=== PATIENT | male | born 1935 | race Caucasian/White ===

== ENCOUNTER → 2016-09-16 | Outpatient (CLI) | payer MEDICARE | LOC: GMAH 11:45 | PROVIDERS: ATTEND Family Medicine | DX: E78.2 Mixed hyperlipidemia (principal); Z12.5 Encounter for screening for malignant neoplasm of prostate | CPT/HCPCS: 84443; 84550; G0103 ==

== ENCOUNTER → 2016-09-19 | Outpatient (CLI) | payer MEDICARE | LOC: LAB.O 09-17 13:33 | PROVIDERS: ATTEND Internal Medicine Rheumatology | DX: M54.5 Low back pain (principal); M34.89 Other systemic sclerosis ==

== ENCOUNTER 2016-10-03 07:13 | Emergency (ER) | payer MEDICARE ==
[2016-10-03 07:33] VITALS: TEMP 96
--- NOTE | 2016-10-03 07:47 | ED.PDOC ---
History of Present Illness - General Chief Complaint: Back Pain or Injury Stated Complaint: back discomfort Time Seen by Provider: 10/03/16 07:41 Source: patient, RN notes reviewed, Vital Signs reviewed Exam Limitations: no limitations - History of Present Illness Initial Comments: Patient stated that his symptoms of soreback started 5-7 days ago with radiation to his right leg aggravated by laying down denies history of falling on his back but according to him he has history of osteoporosis and on long half-way prednisone for his connective tissue disease. Timing/Duration: 1 week, intermittent Quality/Severity: moderate Back Pain Location: lumbar spine Back Pain Radiation: lower legs - right side Method of Injury/Prior Injury: other - no injury reported Improving Factors: other - sitting,walking Associated Symptoms: lower back pain Allergies/Adverse Reactions: Allergies Doxycycline Adverse Reaction (Verified 10/03/16 07:38) Unknown Makes him "feel bad" Home Medications: Ambulatory Orders Aspirin [Aspirin Adult Low Dose] 162 mg PO DAILY 08/05/15 Atenolol [Tenormin] 25 mg PO DAILY 08/05/15 Calcium Citrate-Vitamin D [Citracal + D3 Maximum 315-250 mg-Unit] 1 tab PO BID 08/05/15 Cetirizine HCl [Zyrtec] 10 mg PO BEDTIME 08/05/15 Cholecalciferol [Vitamin D] 2,000 unit PO DAILY 08/05/15 Coenzyme Q10 (Ubidecarenone) [Co Q-10] 100 mg PO DAILY 08/05/15 Elderberry [Little Remedies For Colds] 1 tsp PO DAILY 08/05/15 Estazolam 1 mg PO BEDTIME 08/05/15 Multiple Vitamins W/ Minerals [Centrum Silver] 1 tab PO DAILY 08/05/15 Omeprazole 40 mg PO ACBK 08/05/15 Pravastatin Sodium [Pravachol] 40 mg PO BEDTIME 08/05/15 Pregabalin [Lyrica] 100 mg PO 1700 08/05/15 Pregabalin [Lyrica] 200 mg PO BEDTIME 08/05/15 predniSONE [Prednisone] 10 mg PO DAILY 08/05/15 Acetaminophen W/ Codeine [Tylenol w/Codeine 300-30 mg] 1 tab PO Q4HR PRN #14 tab 10/03/16 Carvedilol [Coreg] 3.125 mg PO DAILY 10/03/16 Ezetimibe [Zetia] 10 mg PO DAILY 10/03/16 Losartan Potassium [Cozaar] 25 mg PO BEDTIME 10/03/16 Magnesium Hydroxide [Milk Of Magnesia] 30 ml PO DAILY 10/03/16 Multiple Vitamins W/ Minerals [Preservision Areds] 1 cap PO BID 10/03/16 Prasugrel [Effient] 10 mg PO BEDTIME 10/03/16 Rosuvastatin Calcium [Crestor] 20 mg PO DAILY 10/03/16 Zoledronic Acid [Reclast] 5 mg IV ONCE 10/03/16 Review of Systems - Review of Systems Constitutional: States: no symptoms reported EENTM: States: blurred vision - history of macular degeneration both eyes Respiratory: States: no symptoms reported Cardiology: States: other - mild exertional dyspnea-hx of chf Gastrointestinal/Abdominal: States: other - gi reflux Genitourinary: States: no symptoms reported Musculoskeletal: States: back pain - chronic hx of osteoporosis Skin: States: no symptoms reported Neurological: States: paresthesia - neuropathy, other - no boel or bladder dysfunction Endocrine: States: no symptoms reported Hematologic/Lymphatic: States: no symptoms reported Past Medical History (General) - Patient Medical History Hx Stroke: No Hx of COPD: Yes Hx Cardiac Disorders: Yes - cardiac stent 09/2015 & 02/2016; [place] 02/2016; high cholesterol Hx Congestive Heart Failure: No Hx Hypertension: Yes Hx Diabetes: No Hx Gastroesophageal Reflux: Yes Hx MRSA: No Hx Other PMH: Yes - macular degeneration Surgical History: other - left eye surgery - Vaccination History Hx Tetanus, Diphtheria Vaccination: No Hx Influenza Vaccination: Yes - 2015 Hx Pneumococcal Vaccination: Yes - Social History Hx Tobacco Use: Yes - Quit 35 years ago Hx Alcohol Use: No Hx Substance Use: No Hx Substance Use Treatment: No Hx Depression: No - Activities of Daily Living Patient Lives Alone: No - lives with Grooming Ability: Independent Eating (Feeding) Ability: Independent Toileting Ability: Independent Family Medical History - Family History Mother Living Status: Age at (years of age): 82 Cause of : shock, cardiovascular Hx Cardiac Disease: Yes - several family members Hx Family;Other: multiple family members with autoimmune disorder Physical Exam - Physical Exam General Appearance: Alert, Comfortable, No apparent distress, Other - ambulatory without assistance Eyes, Ears, Nose, Throat Exam: PERRL/EOMI, normal ENT inspection, pharynx normal Neck Exam: full range of motion, normal alignment, normal inspection Cardiovascular/Respiratory: regular rate, rhythm, no M/R/G, normal peripheral pulses, no JVD, normal breath sounds, no respiratory distress Peripheral Pulses: radial,right: 2+, radial,left: 2+ Gastrointestinal/Abdominal: normal bowel sounds, non tender, soft, no organomegaly, no pulsatile mass Back Exam: normal inspection, no CVA tenderness, no vertebral tenderness, decreased range of motion, muscle spasm - paraspinous lumbar muscle Extremity Exam: no evidence of injury, normal range of motion, non-tender, no pedal edema Neurologic: no motor/sensory deficits, alert, normal mood/affect, oriented x 3, other - DTR 2 + knee jerk bilaterally Skin Exam: normal color, warm/dry Progress - EKG/XRAY/CT XRAY: lumbar spine-degenarative changes no fracture noted Departure - Departure Clinical Impression: Radiculopathy of lumbosacral region Time of Disposition: 09:02 Disposition: Discharge to Home or Self Care Departure Forms: ED Discharge - Pt. Copy, Patient Portal Self Enrollment Instructions: DI for Back Pain With Sciatica Referrals: Stone Ro MD [Primary Care Provider] - 1-2 Weeks Prescriptions: Acetaminophen W/ Codeine [Tylenol w/Codeine 300-30 mg] 1 tab PO Q4HR PRN #14 tab PRN Reason: Pain Home Medications: Ambulatory Orders Aspirin [Aspirin Adult Low Dose] 162 mg PO DAILY 08/05/15 Atenolol [Tenormin] 25 mg PO DAILY 08/05/15 Calcium Citrate-Vitamin D [Citracal + D3 Maximum 315-250 mg-Unit] 1 tab PO BID 08/05/15 Cetirizine HCl [Zyrtec] 10 mg PO BEDTIME 08/05/15 Cholecalciferol [Vitamin D] 2,000 unit PO DAILY 08/05/15 Coenzyme Q10 (Ubidecarenone) [Co Q-10] 100 mg PO DAILY 08/05/15 Elderberry [Little Remedies For Colds] 1 tsp PO DAILY 08/05/15 Estazolam 1 mg PO BEDTIME 08/05/15 Multiple Vitamins W/ Minerals [Centrum Silver] 1 tab PO DAILY 08/05/15 Omeprazole 40 mg PO ACBK 08/05/15 Pravastatin Sodium [Pravachol] 40 mg PO BEDTIME 08/05/15 Pregabalin [Lyrica] 100 mg PO 1700 08/05/15 Pregabalin [Lyrica] 200 mg PO BEDTIME 08/05/15 predniSONE [Prednisone] 10 mg PO DAILY 08/05/15 Acetaminophen W/ Codeine [Tylenol w/Codeine 300-30 mg] 1 tab PO Q4HR PRN #14 tab 10/03/16 Carvedilol [Coreg] 3.125 mg PO DAILY 10/03/16 Ezetimibe [Zetia] 10 mg PO DAILY 10/03/16 Losartan Potassium [Cozaar] 25 mg PO BEDTIME 10/03/16 Magnesium Hydroxide [Milk Of Magnesia] 30 ml PO DAILY 10/03/16 Multiple Vitamins W/ Minerals [Preservision Areds] 1 cap PO BID 10/03/16 Prasugrel [Effient] 10 mg PO BEDTIME 10/03/16 Rosuvastatin Calcium [Crestor] 20 mg PO DAILY 10/03/16 Zoledronic Acid [Reclast] 5 mg IV ONCE 10/03/16 Additional Instructions: ;KEEP APPOINTMENT WITH PRIMARY MD-Wednesday10/05/2016;RETURN TO EMERGENCY ROOM NEEDED
[2016-10-03] MEDS ORDERED: BACLOFEN 10 MG TAB PO ONE (07:48)
--- NOTE | 2016-10-03 08:46 | RAD ---
EXAM DESCRIPTION: XR LUMBAR SPINE 4 OR MORE VIEWS CLINICAL HISTORY: 80 y/o M, back pain COMPARISON: None TECHNIQUE: Five views of the lumbar spine. FINDINGS: There is mild dextroscoliosis of the thoracic spine. There is multilevel spondylosis, worst at L3-L4 with joint space narrowing, subchondral sclerosis and marginal osteophytes. There is multilevel facet arthropathy. There is no acute fracture or subluxation. The vertebral heights are maintained. IMPRESSION: No acute fracture or subluxation. Electronically signed by: Praveen Guido MD 10/03/2016 08:44
[2016-10-03 09:08] VITALS: BP 115/48; O2SAT 97
== END 2016-10-03 09:08 | disposition home or self-care (01) ==
LOC: ER 07:13
DX: M54.17 Radiculopathy, lumbosacral region (principal); M81.0 Age-related osteoporosis without current pathological fracture; M35.9 Systemic involvement of connective tissue, unspecified; J44.9 Chronic obstructive pulmonary disease, unspecified; I25.2 Old myocardial infarction; Z88.3 Allergy status to other anti-infective agents; K21.9 Gastro-esophageal reflux disease without esophagitis; Z87.891 Personal history of nicotine dependence; Z79.82 Long term (current) use of aspirin; Z79.899 Other long term (current) drug therapy; Z98.61 Coronary angioplasty status

== ENCOUNTER → 2016-10-30 | Outpatient (CLI) | payer MEDICARE ==
--- NOTE | 2016-10-30 10:08 | MRI ---
EXAM DESCRIPTION: MR LUMBAR SPINE WITHOUT IV CONTRAST CLINICAL HISTORY: 80 y/o M, RADICULOPATHY, LUMBAR REGION COMPARISON: None TECHNIQUE: Multi planar, multi sequence imaging of the lumbar spine was acquired without IV contrast. FINDINGS: There is S-shaped scoliosis of the lumbar spine due to asymmetrical intervertebral disc height loss. The disc height loss is most pronounced at L2-3 and L4-5. The conus terminates at L1-L2 and is unremarkable. Marrow signal and vertebral body height are unremarkable. The conus terminates at L1-L2. L1-L2: Right facet degeneration. No spinal canal or neural foraminal narrowing. L2-L3: Bilateral facet degeneration and ligamentum flavum thickening. There is left lateral recess narrowing and contact of the descending left L3 nerve root. The midline diameter of the spinal canal is widely patent measuring 13 mm. Mild left neural foraminal narrowing. The right neural foramen is unremarkable. L3-4: Bilateral facet degeneration, right greater than left. The midline diameter of the spinal canal is adequate measuring 13 mm. There is right neural foraminal narrowing noted. The left neural foramen is unremarkable. L4-5: Circumferential disk osteophyte complex asymmetric the left. Facet degeneration and ligamentum flavum thickening. There is right lateral recess narrowing and contact of the descending right L5 nerve root and descending left S1 nerve root. The midline diameter of the spinal canal is widely patent measuring 1.5 cm. Bilateral neural foraminal narrowing noted with contact of the bilateral exiting L4 nerve roots. L5-S1: Bilateral facet degeneration noted. No considerable posterior disk pathology. No spinal canal or neural foraminal narrowing. IMPRESSION: Today's exam demonstrates multilevel degenerative disc disease with asymmetric intervertebral disc height loss resulting in S-shaped scoliosis of the lumbar spine. There is neural foraminal narrowing and lateral recess narrowing resulting in contact of the descending left L3 nerve root at L2-3, descending right L5 nerve root and S1 nerve root at L4-5 along with bilateral exiting L4 nerve roots. These findings could result in radiculopathies, if the patient is symptomatic Electronically signed by: Guanako Pena MD 10/30/2016 10:06
== END | disposition home or self-care (01) ==
LOC: MRI 08:44
PROVIDERS: ATTEND Family Medicine
DX: M54.16 Radiculopathy, lumbar region (principal)

== ENCOUNTER → 2017-01-19 | Outpatient (CLI) | payer MEDICARE | END | disposition home or self-care (01) | LOC: LAB.O 13:47 | PROVIDERS: ATTEND Internal Medicine Rheumatology | DX: D64.89 Other specified anemias (principal); M34.89 Other systemic sclerosis; Z79.899 Other long term (current) drug therapy ==

== ENCOUNTER → 2017-05-11 | Outpatient (CLI) | payer MEDICARE | END | disposition home or self-care (01) | LOC: LAB.O 13:28 | PROVIDERS: ATTEND Internal Medicine Rheumatology | DX: R53.83 Other fatigue (principal); Z79.899 Other long term (current) drug therapy; M34.89 Other systemic sclerosis ==

== ENCOUNTER 2017-06-25 15:20 | Emergency (ER) | payer MEDICARE ==
--- NOTE | 2017-06-25 15:39 | ED.PDOC ---
History of Present Illness - General Chief Complaint: Laceration Stated Complaint: Cut to R forearm Time Seen by Provider: 06/25/17 15:27 Source: patient, RN notes reviewed, Vital Signs reviewed Exam Limitations: no limitations - History of Present Illness Initial Comments: Patient comes to ER with a laceration to his right forearm. He was moving panels and they slipped hitting his arm. Timing/Duration: just prior to arrival Severity: moderate Location: extremities - RUE Improving Factors: nothing Worsening Factors: nothing Associated Symptoms: denies symptoms Allergies/Adverse Reactions: Allergies Doxycycline Adverse Reaction (Verified 10/03/16 07:38) Unknown Makes him "feel bad" Home Medications: Ambulatory Orders Aspirin [Aspirin Adult Low Dose] 162 mg PO DAILY 08/05/15 Atenolol [Tenormin] 25 mg PO DAILY 08/05/15 Calcium Citrate-Vitamin D [Citracal + D3 Maximum 315-250 mg-Unit] 1 tab PO BID 08/05/15 Cetirizine HCl [Zyrtec] 10 mg PO BEDTIME 08/05/15 Cholecalciferol [Vitamin D] 2,000 unit PO DAILY 08/05/15 Coenzyme Q10 (Ubidecarenone) [Co Q-10] 100 mg PO DAILY 08/05/15 Elderberry [Little Remedies For Colds] 1 tsp PO DAILY 08/05/15 Estazolam 1 mg PO BEDTIME 08/05/15 Multiple Vitamins W/ Minerals [Centrum Silver] 1 tab PO DAILY 08/05/15 Omeprazole 40 mg PO ACBK 08/05/15 Pravastatin Sodium [Pravachol] 40 mg PO BEDTIME 08/05/15 Pregabalin [Lyrica] 100 mg PO 1700 08/05/15 Pregabalin [Lyrica] 200 mg PO BEDTIME 08/05/15 predniSONE 10 mg PO DAILY 08/05/15 Acetaminophen W/ Codeine [Tylenol w/Codeine 300-30 mg] 1 tab PO Q4HR PRN #14 tab 10/03/16 Carvedilol [Coreg] 3.125 mg PO DAILY 10/03/16 Ezetimibe [Zetia] 10 mg PO DAILY 10/03/16 Losartan Potassium [Cozaar] 25 mg PO BEDTIME 10/03/16 Magnesium Hydroxide [Milk Of Magnesia] 30 ml PO DAILY 10/03/16 Multiple Vitamins W/ Minerals [Preservision Areds] 1 cap PO BID 10/03/16 Prasugrel [Effient] 10 mg PO BEDTIME 10/03/16 Rosuvastatin Calcium [Crestor] 20 mg PO DAILY 10/03/16 Zoledronic Acid [Reclast] 5 mg IV ONCE 10/03/16 Review of Systems - Review of Systems Constitutional: States: no symptoms reported Respiratory: States: no symptoms reported Cardiology: States: no symptoms reported Musculoskeletal: States: no symptoms reported Skin: States: see HPI Neurological: States: paresthesia - but no change from baseline All other Systems: No Change from Baseline Past Medical History (General) - Patient Medical History Hx Stroke: No Hx of COPD: Yes Hx Cardiac Disorders: Yes - cardiac stent 09/2015 & 02/2016; [place] 02/2016; high cholesterol Hx Congestive Heart Failure: No Hx Hypertension: Yes Hx Diabetes: No Hx Gastroesophageal Reflux: Yes Hx MRSA: No - Vaccination History Hx Tetanus, Diphtheria Vaccination: No Hx Influenza Vaccination: Yes - 2015 Hx Pneumococcal Vaccination: Yes - Social History Hx Tobacco Use: Yes - Quit 35 years ago Hx Alcohol Use: No Hx Substance Use: No Hx Substance Use Treatment: No Hx Depression: No Family Medical History - Family History Mother Living Status: Age at (years of age): 82 Cause of : shock, cardiovascular Hx Cardiac Disease: Yes - several family members Hx Family;Other: multiple family members with autoimmune disorder Physical Exam - Physical Exam General Appearance: Alert, Comfortable, No apparent distress, Well Developed, Well Groomed, Well Hydrated, Well Nourished Cardiovascular/Chest: normal peripheral pulses Respiratory: no respiratory distress Extremity: normal range of motion Neurologic: no motor/sensory deficits, alert, normal mood/affect, oriented x 3 Skin Exam: warm/dry, normal color Skin Problem Location: upper extremities - R wrist and forearm Skin Character: other - R volar wrist: 1X1.5cm V shaped, superficial laceration. R volar forearm: 8 cm linear laceration. Comments: Vital Signs 06/25/17 06/25/17 15:25 15:37 Temperature 98.5 F 98.5 F Pulse Rate [ 64 65 Left Brachial] Respiratory 20 20 Rate Blood Pressure 154/79 154/79 [Left Arm] O2 Sat by Pulse 98 98 Oximetry Procedures - Laceration/Wound Repair Right Volar Arm Wound Length (cm): 8 Wound's Depth, Shape: superficial, linear Wound Explored: no foreign body removed Irrigated w/ Saline (cc's): 250 Betadine Prep?: Yes Anesthesia: Lidocaine w/ Epi Volume Anesthetic (cc's): 6 Wound Debrided: minimal Wound Repaired With: sutures Suture Size/Type: 4:0, prolene Number of Sutures: 10 Layer Closure?: Yes Sterile Dressing Applied?: Yes Splint Applied?: No Sling Applied?: No Right Volar Wrist Wound Length (cm): 1.5 - 1X1.5cm V shaped Wound's Depth, Shape: superficial, flap Wound Explored: no foreign body removed Irrigated w/ Saline (cc's): 100 Betadine Prep?: No Wound Repaired With: steri-strips Layer Closure?: No Sterile Dressing Applied?: Yes Departure - Departure Clinical Impression: Laceration of right forearm without foreign body Qualifiers: Encounter type: initial encounter Qualified Code(s): S51.811A - Laceration without foreign body of right forearm, initial encounter Laceration of right wrist without complication Qualifiers: Encounter type: initial encounter Qualified Code(s): S61.511A - Laceration without foreign body of right wrist, initial encounter Time of Disposition: 16:33 Disposition: Discharge to Home or Self Care Departure Forms: ED Discharge - Pt. Copy, Patient Portal Self Enrollment Instructions: DI for Laceration Repair Steri-Strips, DI for Laceration Repair - - Simple Diet: resume usual diet Activity: increase activity as tolerated Referrals: Stone Ro MD [Primary Care Provider] - 1-2 Weeks Home Medications: Ambulatory Orders Aspirin [Aspirin Adult Low Dose] 162 mg PO DAILY 08/05/15 Atenolol [Tenormin] 25 mg PO DAILY 08/05/15 Calcium Citrate-Vitamin D [Citracal + D3 Maximum 315-250 mg-Unit] 1 tab PO BID 08/05/15 Cetirizine HCl [Zyrtec] 10 mg PO BEDTIME 08/05/15 Cholecalciferol [Vitamin D] 2,000 unit PO DAILY 08/05/15 Coenzyme Q10 (Ubidecarenone) [Co Q-10] 100 mg PO DAILY 08/05/15 Elderberry [Little Remedies For Colds] 1 tsp PO DAILY 08/05/15 Estazolam 1 mg PO BEDTIME 08/05/15 Multiple Vitamins W/ Minerals [Centrum Silver] 1 tab PO DAILY 08/05/15 Omeprazole 40 mg PO ACBK 08/05/15 Pravastatin Sodium [Pravachol] 40 mg PO BEDTIME 08/05/15 Pregabalin [Lyrica] 100 mg PO 1700 08/05/15 Pregabalin [Lyrica] 200 mg PO BEDTIME 08/05/15 predniSONE 10 mg PO DAILY 08/05/15 Acetaminophen W/ Codeine [Tylenol w/Codeine 300-30 mg] 1 tab PO Q4HR PRN #14 tab 10/03/16 Carvedilol [Coreg] 3.125 mg PO DAILY 10/03/16 Ezetimibe [Zetia] 10 mg PO DAILY 10/03/16 Losartan Potassium [Cozaar] 25 mg PO BEDTIME 10/03/16 Magnesium Hydroxide [Milk Of Magnesia] 30 ml PO DAILY 10/03/16 Multiple Vitamins W/ Minerals [Preservision Areds] 1 cap PO BID 10/03/16 Prasugrel [Effient] 10 mg PO BEDTIME 10/03/16 Rosuvastatin Calcium [Crestor] 20 mg PO DAILY 10/03/16 Zoledronic Acid [Reclast] 5 mg IV ONCE 10/03/16 Additional Instructions: Keep wounds dry X 48 hours Do not soak in water until sutures removed Suture removal 7-10 days
[2017-06-25] MEDS ORDERED: LIDOCAINE 2% W/ EPINEPHRINE 20 ML VIAL INJ ONE (15:40)
[2017-06-25] MEDS ORDERED: NEOMYCIN-BACITRACIN-POLYMYXIN 0.9 GM UD TOP ONE (15:40)
[2017-06-25] MEDS ORDERED: CHLORHEXIDINE GLUCONATE 4 % 15 ML UD TOP ONE (15:44)
[2017-06-25 15:50] VITALS: TEMP 98.5
[2017-06-25] MEDS ORDERED: TETANUS,DIPHTHERIA,PERTUSSIS 1 EA SYG IM ONE (16:28)
[2017-06-25 16:47] VITALS: O2SAT 97
[2017-06-25 16:50] VITALS: BP 124/69
== END 2017-06-25 16:52 | disposition home or self-care (01) ==
LOC: ER 15:20
DX: S51.811A Laceration without foreign body of right forearm, initial encounter (principal); S61.511A Laceration without foreign body of right wrist, initial encounter; J44.9 Chronic obstructive pulmonary disease, unspecified; I10 Essential (primary) hypertension; E78.00 Pure hypercholesterolemia, unspecified; Z98.61 Coronary angioplasty status; Z79.82 Long term (current) use of aspirin; Z23 Encounter for immunization; Z79.899 Other long term (current) drug therapy; Z87.891 Personal history of nicotine dependence; W22.8XXA Striking against or struck by other objects, initial encounter; Y92.9 Unspecified place or not applicable

== ENCOUNTER → 2017-10-19 | Outpatient (CLI) | payer MEDICARE | LOC: GMAH 10:49 | PROVIDERS: ATTEND Family Medicine | DX: E78.2 Mixed hyperlipidemia (principal); Z12.5 Encounter for screening for malignant neoplasm of prostate | CPT/HCPCS: 84443; 84550; G0103 ==

== ENCOUNTER → 2017-11-15 | Outpatient (CLI) | payer MEDICARE | LOC: LAB.O 14:14 | PROVIDERS: ATTEND Internal Medicine Rheumatology | DX: M34.89 Other systemic sclerosis (principal); M15.0 Primary generalized (osteo)arthritis; Z79.899 Other long term (current) drug therapy ==

== ENCOUNTER → 2018-03-10 | Outpatient (CLI) | payer MEDICARE | LOC: LAB.O 15:17 | PROVIDERS: ATTEND Internal Medicine Rheumatology | DX: R79.89 Other specified abnormal findings of blood chemistry (principal); M15.0 Primary generalized (osteo)arthritis; M34.89 Other systemic sclerosis; Z79.899 Other long term (current) drug therapy ==

== ENCOUNTER → 2018-04-18 | Outpatient (CLI) | payer MEDICARE | LOC: LAB.O 13:19 | PROVIDERS: ATTEND Internal Medicine Rheumatology | DX: M15.0 Primary generalized (osteo)arthritis (principal); M34.89 Other systemic sclerosis; Z79.899 Other long term (current) drug therapy ==

== ENCOUNTER → 2018-08-22 | Outpatient (CLI) | payer MEDICARE | LOC: LAB.O 14:52 | PROVIDERS: ATTEND Internal Medicine Rheumatology | DX: D64.89 Other specified anemias (principal); M34.89 Other systemic sclerosis; Z79.899 Other long term (current) drug therapy ==

== ENCOUNTER → 2018-11-08 | Outpatient (CLI) | payer MEDICARE | LOC: GMAH 10:58 | PROVIDERS: ATTEND Family Medicine | DX: I10 Essential (primary) hypertension (principal); E78.2 Mixed hyperlipidemia; Z12.5 Encounter for screening for malignant neoplasm of prostate | CPT/HCPCS: 84443; 84550; G0103 ==

== ENCOUNTER → 2019-03-21 | Outpatient (CLI) | payer MEDICARE ==
--- NOTE | 2019-03-21 10:20 | US ---
US HEAD NECK SOFT TISSUE CLINICAL STATEMENT: abnormal findings on diagnostic imaging. COMPARISON: None TECHNIQUE: Transcutaneous scanning, grayscale and Doppler modes. FINDINGS: Size right thyroid lobe: 4.0 x 1.4 x 2.3 cm Size left thyroid lobe: 4.7 x 2.1 x 1.9 cm Size isthmus: 0.44 cm Estimated total number of nodules greater than or equal to 1 cm: 4 nodules. Nodule 1: Size: 2.2 x 1.6 x 1.2 cm Location: Left Mid Composition: cystic or completely cystic: 0 points. Septations. Echogenicity: anechoic: 0 points Shape: wider than tall: 0 points Margins: smooth: 0 points Echogenic foci: none: 0 points ACR Total Points: 0; ACR TI-RADS risk category: TR1 - benign nodule Nodule 2: Size: 1.1 x 0.9 x 0.7 cm Location: Left Upper Composition: cystic or completely cystic: 0 points Echogenicity: anechoic: 0 points Shape: wider than tall: 0 points Margins: smooth: 0 points Echogenic foci: none: 0 points ACR Total Points: 0; ACR TI-RADS risk category: TR1 - benign nodule Nodule 3: Size: 1.0 x 0.8 x 0.5 cm Location: Isthmus Mid Composition: solid or almost completely solid: 2 points Echogenicity: hypoechoic: 2 points Shape: wider than tall: 0 points Margins: smooth: 0 points. Minimal vascularity on one edge. Echogenic foci: none: 0 points ACR Total Points: 4; ACR TI-RADS risk category: TR4 - moderately suspicious nodule. Nodule 4: Size: 1.0 x 0.7 x 0.5 cm Location: Right Mid Composition: solid or almost completely solid: 2 points Echogenicity: hypoechoic: 2 points Shape: wider than tall: 0 points Margins: smooth: 0 points. Minimal vascularity on one edge. Echogenic foci: none: 0 points ACR Total Points: 4; ACR TI-RADS risk category: TR4 - moderately suspicious nodule. No distinct cysts or dominant solid masses in the remainder of the gland or in the soft tissues. No large calcifications or parenchymal edema. IMPRESSION: 1. Nodule 1: ACR TI-RADS 2017 Category TR1. Recommend: No further follow-up.. Recommendations based upon [facility] [employer] [facility] recommendations and ACR TI-RADS 2017 guidelines. Please see below*. 2. Nodule 2: ACR TI-RADS 2017 Category TR1. Recommend: No further follow-up. 3. Nodule 3: ACR TI-RADS 2017 Category TR4. Recommend: Follow-up ultrasound in 1 year. 4. Nodule 4: ACR TI-RADS 2017 Category TR4. Recommend: Follow-up ultrasound in 1 year. Soft tissue around the thyroid gland is unremarkable. *ACR TI-RADS 2017 Recommendations: TR1: No FNA or follow up TR2: No FNA or follow up TR3: FNA if >/= 2.5 cm, follow up if 1.5 - 2.4 cm in 1, 3, and 5 years TR4: FNA if >/= 1.5 cm, follow up if 1.0 - 1.4 cm in 1, 2, 3, and 5 years TR5: FNA if >/= 1.0 cm, follow up if 0.5 - 0.9 cm every year for 5 years ACR TI-RADS recommends that no more than two nodules with the highest ACR TI-RADS total point should be biopsied and no more than four nodules should be followed. These recommendations do not apply to patients with increased risk for thyroid cancer or patients with symptomatic thyroid disease. Electronically signed by: Marlon Sommers MD 03/21/2019 10:17 AM CDT
== END ==
LOC: US 08:30
PROVIDERS: ATTEND Family Medicine
DX: E04.2 Nontoxic multinodular goiter (principal)

== ENCOUNTER → 2019-05-31 | Outpatient (CLI) | payer MEDICARE | LOC: LAB.O 15:33 | PROVIDERS: ATTEND Internal Medicine Rheumatology | DX: M34.89 Other systemic sclerosis (principal); Z79.899 Other long term (current) drug therapy ==

== ENCOUNTER 2019-07-05 17:57 | Emergency (ER) | payer MEDICARE ==
[2019-07-05] MEDS ORDERED: CARVEDILOL 3.125 MG TAB PO ONE (18:49)
--- NOTE | 2019-07-05 19:17 | RAD ---
EXAM: Chest,2 Views CLINICAL INDICATION: Shortness of breath, tachycardia COMPARISON: 02/21/2016 FINDINGS: Two views of the chest were obtained. Atherosclerotic calcifications are noted involving the aorta. The heart size is normal. The pulmonary vascularity is unremarkable. The lungs are clear. There is no consolidation, infiltrate, pleural effusion, or pneumothorax. IMPRESSION: No evidence of active pulmonary disease. Electronically signed by: Josh Pérez MD 07/05/2019 7:15 PM CDT
[2019-07-05 19:37] VITALS: O2SAT 98
--- NOTE | 2019-07-05 19:59 | ED.PDOC ---
History of Present Illness - General Chief Complaint: General Stated Complaint: weakness Time Seen by Provider: 07/05/19 18:47 Source: patient Exam Limitations: no limitations - History of Present Illness Initial Comments: the patient is an 83-year-old male presenting to emergency room secondary to feeling a little bit weak this evening with some faster heart rate and palpitations. He has not been taking his carvedilol every evening and he is unsure if he took a dose this morning. No chest pain or syncope. Mild shortness of breath with a heart rate goes higher. On telemetry here he has periods where his heart rate goes up to the 120s or 130s mainly with extra PACs. This does improve down to the 90s and much more regular after a dose of oral Coreg. Timing/Duration: 1-3 hours Severity: mild Improving Factors: nothing Worsening Factors: nothing Associated Symptoms: denies symptoms Allergies/Adverse Reactions: Allergies Doxycycline Adverse Reaction (Verified 10/03/16 07:38) Unknown Makes him "feel bad" Home Medications: Ambulatory Orders Aspirin [Aspirin Adult Low Dose] 81 mg PO DAILY 08/05/15 Calcium Citrate-Vitamin D [Citracal + D3 Maximum 315-250 mg-Unit] 1 tab PO BID 08/05/15 Cetirizine HCl [Zyrtec] 10 mg PO BEDTIME PRN 08/05/15 Cholecalciferol [Vitamin D] 2,000 unit PO DAILY 08/05/15 Coenzyme Q10 (Ubidecarenone) [Co Q-10] 100 mg PO DAILY 08/05/15 Estazolam 1 mg PO BEDTIME 08/05/15 Multiple Vitamins W/ Minerals [Centrum Silver] 1 tab PO DAILY 08/05/15 Omeprazole 40 mg PO ACBK 08/05/15 Pregabalin [Lyrica] 100 mg PO 1700 08/05/15 Pregabalin [Lyrica] 200 mg PO BEDTIME 08/05/15 predniSONE 10 mg PO DAILY 08/05/15 Acetaminophen W/ Codeine [Tylenol w/Codeine 300-30 mg] 1 tab PO Q4HR PRN #14 tab 10/03/16 Carvedilol [Coreg] 3.125 mg PO DAILY 10/03/16 Ezetimibe [Zetia] 10 mg PO DAILY 10/03/16 Losartan Potassium [Cozaar] 25 mg PO BEDTIME 10/03/16 Magnesium Hydroxide [Milk Of Magnesia] 30 ml PO DAILY 10/03/16 Prasugrel [Effient] 10 mg PO BEDTIME 10/03/16 Rosuvastatin Calcium [Crestor] 20 mg PO DAILY 10/03/16 Zoledronic Acid [Reclast] 5 mg IV ONCE 10/03/16 Review of Systems - Review of Systems Constitutional: States: malaise EENTM: States: no symptoms reported, nose congestion - he has had a recent upper respiratory tract infection Respiratory: States: cough - mild Cardiology: States: palpitations Gastrointestinal/Abdominal: States: no symptoms reported Genitourinary: States: no symptoms reported Musculoskeletal: States: no symptoms reported Skin: States: no symptoms reported Neurological: States: no symptoms reported Endocrine: States: no symptoms reported All other Systems: No Change from Baseline Past Medical History (General) - Patient Medical History Hx Seizures: No Hx Stroke: No Hx Dementia: No Hx Asthma: No Hx of COPD: Yes Hx Cardiac Disorders: Yes - stent Hx Congestive Heart Failure: No Hx Pacemaker: No Hx Hypertension: Yes Hx Thyroid Disease: No Hx Diabetes: No Hx Gastroesophageal Reflux: Yes Hx Renal Disease: No Hx Cancer: No Hx of HIV: No Hx Hepatitis C: No Hx MRSA: No Surgical History: no surgical history - Vaccination History Hx Tetanus, Diphtheria Vaccination: No Hx Influenza Vaccination: Yes - 2016 Hx Pneumococcal Vaccination: Yes - Social History Hx Tobacco Use: Yes - Quit 35 years ago Hx Chewing Tobacco Use: No Hx Alcohol Use: No Hx Substance Use: No Hx Substance Use Treatment: No Hx Depression: No Hx Physical Abuse: No Hx Emotional Abuse: No Hx Suspected Abuse: No Family Medical History - Family History Mother Living Status: Age at (years of age): 82 Cause of : shock, cardiovascular Hx Cardiac Disease: Yes - several family members Hx Family;Other: multiple family members with autoimmune disorder Physical Exam - Physical Exam General Appearance: Alert, Comfortable, No apparent distress Eye Exam: bilateral normal Ears, Nose, Throat: hearing grossly normal, normal ENT inspection - chandler are mildly red, other - he has had Mohs surgery on the left ear recently. 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 The patient was in sinus tachycardia with frequent PACs and PVCs. This did correct with his evening dose of Coreg. I would recommend that the patient continue his twice daily dosing of his Coreg/carvedilol. He needs to keep his follow-up with his primary care doctor. ER warnings were given. Laboratory work and x-ray are reassuring. [email or web address] aponte [phone] - Results/Orders Results/Orders: hest x-ray shows no focal infiltrate mass, pneumothorax or overt fluid overload. EKG shows normal sinus rhythm with PVCs and telemetry shows PACs. Rate is 94 bpm. Normal axis. No definitive ST segment or T-wave changes indicative of acute ischemia. Borderline LVH criteria. Normal QT interval. Laboratory Tests 07/05/19 07/05/19 07/05/19 19:00 19:00 19:00 WBC 9.5 RBC 4.13 L Hgb 13.3 L Hct 40.3 L MCV 97.7 H MCH 32.3 H MCHC 33.0 RDW 14.5 Plt Count 198 MPV 10.0 Absolute Neuts (auto) 7.70 H Absolute Lymphs (auto) 0.70 L Absolute Monos (auto) 1.00 H Absolute Eos (auto) 0.00 Absolute Basos (auto) 0.10 Neutrophils % 81.3 H Lymphocytes % 7.1 L Monocytes % 10.3 H Eosinophils % 0.5 L Basophils % 0.8 PT 10.6 INR 1.06 PTT (SP) 29.2 D-Dimer, Quantitative 0.43 Sodium 140 Potassium 5.0 Chloride 103 Carbon Dioxide 25 Anion Gap 17.0 BUN 18 Creatinine 0.97 BUN/Creatinine Ratio 18.6 Random Glucose 103 Serum Osmolality 281.6 Calcium 8.9 Magnesium 2.3 Total Bilirubin 0.8 AST 22 ALT 24 Alkaline Phosphatase 44 Creatine Kinase 85 CK-MB (CK-2) 3.1 CK-MB (CK-2) % Not Reportable Troponin I 0.03 B-Natriuretic Peptide 285.0 H* Serum Total Protein 6.6 Albumin 4.4 Globulin 2.2 L Albumin/Globulin Ratio 2.0 H TSH 0.98 Urine Color Urine Appearance Urine pH Ur Specific Craig Urine Protein Urine Glucose (UA) Urine Ketones Urine Blood Urine Nitrite Urine Bilirubin Urine Urobilinogen Ur Leukocyte Esterase Urine RBC Urine WBC Ur Epithelial Cells Urine Bacteria 07/05/19 19:20 WBC RBC Hgb Hct MCV MCH MCHC RDW Plt Count MPV Absolute Neuts (auto) Absolute Lymphs (auto) Absolute Monos (auto) Absolute Eos (auto) Absolute Basos (auto) Neutrophils % Lymphocytes % Monocytes % Eosinophils % Basophils % PT INR PTT (SP) D-Dimer, Quantitative Sodium Potassium Chloride Carbon Dioxide Anion Gap BUN Creatinine BUN/Creatinine Ratio Random Glucose Serum Osmolality Calcium Magnesium Total Bilirubin AST ALT Alkaline Phosphatase Creatine Kinase CK-MB (CK-2) CK-MB (CK-2) % Troponin I B-Natriuretic Peptide Serum Total Protein Albumin Globulin Albumin/Globulin Ratio TSH Urine Color Yellow Urine Appearance Clear Urine pH 7.0 Ur Specific Craig 1.010 Urine Protein Negative Urine Glucose (UA) Negative Urine Ketones Negative Urine Blood Trace-intact H Urine Nitrite Negative Urine Bilirubin Negative Urine Urobilinogen 0.2 Ur Leukocyte Esterase Negative Urine RBC 0-1 Urine WBC 0 Ur Epithelial Cells 0 Urine Bacteria 0 Departure - Departure Clinical Impression: PAC (premature atrial contraction), Sinus tachycardia Disposition: Discharge to Home or Self Care Condition: Fair Departure Forms: ED Discharge - Pt. Copy, Patient Portal Self Enrollment Diet: regular diet Activity: increase activity as tolerated Referrals: Greg Isabel MD [Primary Care Provider] - 1-2 Weeks Home Medications: Ambulatory Orders Aspirin [Aspirin Adult Low Dose] 81 mg PO DAILY 08/05/15 Calcium Citrate-Vitamin D [Citracal + D3 Maximum 315-250 mg-Unit] 1 tab PO BID 08/05/15 Cetirizine HCl [Zyrtec] 10 mg PO BEDTIME PRN 08/05/15 Cholecalciferol [Vitamin D] 2,000 unit PO DAILY 08/05/15 Coenzyme Q10 (Ubidecarenone) [Co Q-10] 100 mg PO DAILY 08/05/15 Estazolam 1 mg PO BEDTIME 08/05/15 Multiple Vitamins W/ Minerals [Centrum Silver] 1 tab PO DAILY 08/05/15 Omeprazole 40 mg PO ACBK 08/05/15 Pregabalin [Lyrica] 100 mg PO 1700 08/05/15 Pregabalin [Lyrica] 200 mg PO BEDTIME 08/05/15 predniSONE 10 mg PO DAILY 08/05/15 Acetaminophen W/ Codeine [Tylenol w/Codeine 300-30 mg] 1 tab PO Q4HR PRN #14 tab 10/03/16 Carvedilol [Coreg] 3.125 mg PO DAILY 10/03/16 Ezetimibe [Zetia] 10 mg PO DAILY 10/03/16 Losartan Potassium [Cozaar] 25 mg PO BEDTIME 10/03/16 Magnesium Hydroxide [Milk Of Magnesia] 30 ml PO DAILY 10/03/16 Prasugrel [Effient] 10 mg PO BEDTIME 10/03/16 Rosuvastatin Calcium [Crestor] 20 mg PO DAILY 10/03/16 Zoledronic Acid [Reclast] 5 mg IV ONCE 10/03/16 Additional Instructions: the patient's an 83-year-old male presenting to the emergency room secondary to a feeling of malaise and his heart going faster. The patient was in sinus tachycardia with frequent PACs and PVCs. This did correct with his evening dose of Coreg. I would recommend that the patient continue his twice daily dosing of his Coreg/carvedilol. He needs to keep his follow-up with his primary care doctor. ER warnings were given. Laboratory work and x-ray are reassuring.
[2019-07-05 20:07] VITALS: BP 106/67
[2019-07-05 20:12] VITALS: TEMP 97.9
== END 2019-07-05 20:12 | disposition home or self-care (01) ==
LOC: ER 17:57
DX: I49.1 Atrial premature depolarization (principal); R00.0 Tachycardia, unspecified; I49.3 Ventricular premature depolarization; R53.1 Weakness; R06.02 Shortness of breath; I10 Essential (primary) hypertension; K21.9 Gastro-esophageal reflux disease without esophagitis; Z95.5 Presence of coronary angioplasty implant and graft; Z87.891 Personal history of nicotine dependence; J44.9 Chronic obstructive pulmonary disease, unspecified; Z79.899 Other long term (current) drug therapy; Z79.82 Long term (current) use of aspirin; Z88.1 Allergy status to other antibiotic agents

== ENCOUNTER → 2019-09-14 | Outpatient (CLI) | payer MEDICARE | LOC: LAB.O 14:47 | PROVIDERS: ATTEND Internal Medicine Rheumatology | DX: M34.89 Other systemic sclerosis (principal); Z79.899 Other long term (current) drug therapy ==

== ENCOUNTER → 2020-01-30 | Outpatient (CLI) | payer MEDICARE | LOC: GMA MATASK 11:51 | PROVIDERS: ATTEND Family Medicine | DX: E78.2 Mixed hyperlipidemia (principal); I10 Essential (primary) hypertension; Z12.5 Encounter for screening for malignant neoplasm of prostate | CPT/HCPCS: 84443; 84550; G0103 ==